=== PATIENT | female | born 1970 | race Caucasian/White ===

== ENCOUNTER 2021-01-29 15:04 | Outpatient (RCR) | payer BC, SELFPAY ==
[2021-01-29] MEDS: COVID-19 VACC, MRNA(PFIZER)/PF 30 MCG/0.3 ML SYRINGE IM (11:04)
[2021-02-19] MEDS: COVID-19 VACC, MRNA(PFIZER)/PF 30 MCG/0.3 ML SYRINGE IM (10:59)
== END 2021-01-29 23:59 ==
LOC: IMMUN 15:04
PROVIDERS: PCP Family Medicine; Visit Provider Family Medicine
DX: Z23 Encounter for immunization (principal)
CPT/HCPCS: 0001A; 0002A; 91300

== ENCOUNTER 2025-01-29 01:42 | Observation (INO) | payer BC, SELFPAY ==
[2025-01-29] VITALS (15 sets, daily range): BP systolic 118–148; BP diastolic 53–109; PULSE 91–151; RESP 16–22; TEMP 36.7–38.1; O2SAT 94–98; BMI 22.1; BMI 21.4
--- NOTE | 2025-01-29 01:54 | ED.VIS.DYS ---
HPI History of Present Illness Chief Complaint: Asthma Narrative Narrative: 54-year-old female past medical history of asthma that is usually well-controlled presents with shortness of breath, fever, cough with green sputum production that began on Tuesday, approximately 3 days ago. She states that she is having increasing shortness of breath is usually very careful around this time of year because she does not want to have an infection. She does her daily breathing treatments. She states that she has been ill and short of breath for the last few days. She and her went to urgent care yesterday evening around 8 hours ago, and were swabbed for COVID and flu and were negative. She last took Tylenol or ibuprofen at around midnight, 2 hours ago. [facility] Medical History (Updated 01/29/25 @ 03:[address] Cece Gooden MD) Allergic rhinitis HTN (hypertension) Asthma Home Medications ?Medication ?Instructions ?Recorded ?Last Taken ?Type albuterol sulfate 90 mcg/actuation 1 puff inhalation Q4H PRN PRN 01/29/25 Unknown History aerosol inhaler wheezing fexofenadine-pseudoephedrine ER 1 tab PO Q24H PRN allergy symptoms 01/29/25 Unknown History 180 mg-240 mg tablet,ext.release 24 hr (24HR Allergy-Congestion Relief) fluticasone 100 mcg-salmeterol 50 1 ea inhalation BID 01/29/25 Unknown History mcg/dose blistr powdr for inhalation hydroxyzine HCl 25 mg tablet 25 mg PO TID PRN PRN anxiety 01/29/25 Unknown History lisinopril 20 1 tab PO DAILY 01/29/25 Unknown History mg-hydrochlorothiazide 12.5 mg tablet polymyxin B sulfate 10,000 1 drp RIGHT EYE Q4H 01/29/25 Unknown History unit-trimethoprim 1 mg/mL eye drops Allergy/AdvReac Type Severity Reaction Status Date / Time amoxicillin Allergy Rash Verified 01/29/25 01:43 Sulfa (Sulfonamide AdvReac Mild Rash Verified 01/29/25 01:43 Antibiotics) Surgical History (Updated 01/29/25 @ 03:[address] Cece Gooden MD) H/O section Social History Smoking Status: Never smoker ROS ROS ED ROS Narrative Constitutional: Positive fever, no chills. HEENT: No sore throat. No neck pain. Cardiovascular: No chest pain. No palpitations. No pedal edema. Respiratory: Positive productive cough, positive shortness of breath. Abdominal: No abdominal pain. No nausea. No vomiting. Genitourinary: No dysuria. No hematuria. Musculoskeletal: No myalgias. No arthralgias. EXAM Physical Exam Narrative Exam Narrative: Temperature elevated at 100.6 ?F. Nontoxic-appearing. Cardiovascular examination does reveal positive Tachycardia. Positive rhonchi bilateral lower lung chaney left greater than right. Decreased air movement bilateral bases. No wheezing or stridor. Abdomen soft nontender without guarding or rebound. Neurological examination nonfocal and nonlateralizing. Const Vital Signs: 01/29/25 01:42 01/29/25 01:42 01/29/25 02:08 Temperature 100.6 F H Temperature Source Oral Pulse Rate 151 H 140 H Respiratory Rate 18 16 Respiratory Effort Normal Non-Labored Respiratory Depth Normal Respiratory Pattern Normal Normal Blood Pressure 148/64 H Blood Pressure Mean 92 Pulse Ox 94 Oxygen Delivery Method Room Air Room Air 01/29/25 02:35 01/29/25 03:19 01/29/25 03:20 Temperature 100.6 F H 100.6 F H Temperature Source Oral Pulse Rate 125 H 131 H Respiratory Rate 22 H 19 H Respiratory Effort Respiratory Depth Respiratory Pattern Blood Pressure 120/77 120/77 Blood Pressure Mean 91 91 Pulse Ox 95 95 Oxygen Delivery Method Room Air Room Air MDM MDM MDM Narrative Medical decision making narrative: Differential diagnosis includes but not limited to viral syndrome versus asthma exacerbation versus pneumonia. She has already been swabbed for COVID and influenza and she is outside the window for any influenza A medications. She will be given a loading dose of prednisone 60 mg orally and a DuoNeb aerosolized treatment. Chest x-ray and 2 views will be obtained. I did not administer any more antipyretics because she has taken 1 in the last 2 hours. Given her tachycardia, EKG will be obtained. There may be some anxiety component to her tachycardia as well. EKG was obtained and interpreted by myself independently as sinus tachycardia at [address] changes. No STEMI. Initially, on my independent interpretation of the chest x-ray in 2 views, there is a left lower lobe pneumonia/infiltrate. I reviewed the radiology report which confirmed my independent interpretation. Given her high heart rate, and elevated temperature of 100.6 ?F, sepsis workup was pursued. Repeat examination shows her breathing improved after DuoNeb aerosolized treatment. She remains tachycardic at 130 bpm. I reviewed her initial CBC which returned and she has a white count of 21.6 with hemoglobin 12.9, hematocrit 38.0, platelet count 253. I do feel that she has a pneumonia, and she will be started on CAP antibiotics. She has not noted allergic reaction to amoxicillin and sulfa where she gets rashes and states that she is not sure that she ever has had a cephalosporin previously because she does not usually take antibiotics. I will start her on Levaquin 750 mg IV. Her cultures are currently pending as well as her remaining laboratory work but I will discuss patient with Dr. Gooden the hospitalist for admission. Was able to review her laboratory work and she is hypokalemic at 3.1 but lactic acid normal at 1.1. While she may have SIRS, her heart rate is coming down to 125 bpm after IV fluid bolus. I do not feel she is meeting sepsis criteria as there is no endorgan damage. Her coagulation studies are negative and she does not have an acute kidney injury. Disposition is assigned observation in stable condition. History & Record Review Discussion w/independent historian: Patient and Family Lab Data Attestation: I reviewed the patient's lab results. Labs: Laboratory Results - last 24 hr 01/29/25 02:41 WBC 21.6 H RBC 4.10 L Hgb 12.9 Hct 38.0 MCV 92.7 MCH 31.5 MCHC 33.9 RDW Std Deviation 43.8 RDW Coeff of Zac 12.8 Plt Count 253 MPV 8.9 Immature Gran % (Auto) 0.700 Neut % (Auto) 85.8 H Lymph % (Auto) 3.9 L [place] % (Auto) 9.2 Eos % (Auto) 0.2 Baso % (Auto) 0.2 Absolute Neuts (auto) 18.5 H Absolute Lymphs (auto) 0.84 Nucleated RBC % 0 Differential Comment SCANNED Diff Path Review May foll Platelet Estimate ADEQUATE RBC Morphology NORM C+C PT 14.2 INR 1.1 APTT 31.5 Sodium 140 Potassium 3.1 L Chloride 102 Carbon Dioxide 20.7 L Anion Gap 18 H BUN 12 Creatinine 0.90 Estim Creat Clear Calc 62.81 Est GFR (MDRD) Non-Af 75 BUN/Creatinine Ratio 13.4 Glucose 144 H Lactic Acid 1.1 Calcium 9.6 Total Bilirubin 0.72 AST 23 ALT 8 Alkaline Phosphatase 175 H Total Protein 7.9 Albumin 4.0 Globulin 3.9 Albumin/Globulin Ratio 1.0 Radiography Chest X-Ray - ED: 2 View, Read by ED Physician, Read by Radiologist and Left Infiltrate Diagnostic Testing: Clinical Impression(s) from Imaging Studies Chest X-Ray 01/29/25 02:30 IMPRESSION: Abnormal patchy opacity projecting over the mid to lower left lung, concerning for pneumonia. Recommend continued radiologic follow-up to document resolution. Reading [facility] Management Discussion w/another healthcare provider: Hospitalist (Dr. Gooden) Discharge Plan Dx/Rx/DC Orders Clinical Impression: Pneumonia, Leukocytosis, History of asthma, Hypokalemia, SIRS (systemic inflammatory response syndrome) Disposition Disposition: Acute Care Hospital [facility]
--- NOTE | 2025-01-29 01:56 | EKG12_ITS ---
Test Reason : DYSRHYTHMIA Blood Pressure : */* mmHG Vent. Rate : 141 BPM Atrial Rate : 141 BPM P-R Int : 136 ms QRS Dur : 90 ms QT Int : 268 ms P-R-T Axes : 65 81 17 degrees QTcB Int : 410 ms Critical Test Result: High HR Sinus tachycardia Biatrial enlargement ST & T wave abnormality, consider inferior ischemia Abnormal ECG Confirmed by ABENA MILLER, MINNIE ([id number]), advertising editor TAMARA NOYOLA ([id number]) on 01/29/2025 8:22:04 AM Referred By: Confirmed By: MINNIE KRAFT MD
[2025-01-29] MEDS: predniSONE 20 MG Tablet 60 MG PO (01:59)
[2025-01-29] MEDS: Ipratropium/Albuterol Sulfate 3 ML AMPUL.NEB INHALATION ×5 (02:08→19:37)
--- NOTE | 2025-01-29 02:30 | RAD_ITS ---
PROCEDURE: PA and lateral chest radiographs, two views 01/29/2025 REASON FOR EXAM: FEVER, SHORTNESS OF BREATH TECHNIQUE: PA and lateral chest radiographs were obtained. COMPARISON: None available FINDINGS: The cardiomediastinal silhouette is within normal limits. Monitoring leads overlie the chest. Mild degenerative changes in the spine. No pneumothorax or pulmonary vascular congestion. Vague opacity projecting over the right cardiophrenic angle may be due to prominent fat pad. There is abnormal patchy opacity projecting over the mid to lower left lung. No sizable pleural effusion. RAD/Chest PA and Lateral IMPRESSION: Abnormal patchy opacity projecting over the mid to lower left lung, concerning for pneumonia. Recommend continued radiologic follow-up to document resolution. Reading Location: [facility]
--- NOTE | 2025-01-29 02:30 | ED.RN ---
NO OLD EKG
[2025-01-29] MEDS: 0.9% Normal Saline (1000mL) 1,000 ML 999 ML IV ×2 (02:47→04:23)
[2025-01-29 02:56] LABS: Absolute Lymphocyte Count 0.84 X10^3/uL (0.83-4.51); Absolute Neutrophil Count 18.5 X10^3/uL (2.0-7.7); Basophil# 0.04 X10^3/uL; Basophil% 0.2 % (0-1); Eosinophil# 0.04 X10^3/uL; Eosinophils% 0.2 % (0-5); Hemoglobin 12.9 g/dL (12.0-15.0); Lymphocyte # 0.84 X10^3/ul (0.83-4.51); Lymphocyte % 3.9 % (19-41); Mean Corp Hgb Conc 33.9 g/dL (32-36); Mean Corpuscular Hgb 31.5 pg (27.0-32.0); Mean Corpuscular Volume 92.7 fL (81-99); Mean Platelet Vol. 8.9 fl (6.2-12.0); Monocyte# 1.98 X10^3/uL; Monocyte% 9.2 % (0-10); NRBC Flagged by Analyzer 0 % (0-5); Neutrophil # 18.51 X10^3/uL (2.7-7.7); Neutrophil % 85.8 % (47-70); POSITIVE DIFFERENTIAL YES; POSITIVE MORPHOLOGY YES; Platelet Count 253 K/mm3 (150-450); RBC Distribution Width CV 12.8 % (11.6-14.6); RBC Distribution Width SD 43.8 fl (35.1-43.9); White Blood Count 21.6 K/mm3 (4.4-11.0)
[2025-01-29 02:57] LABS: Differential Indicated SCAN CRITERIA MET
[2025-01-29 03:05] LABS: International Normalized Ratio 1.1; Prothrombin Time (Protime)PT. 14.2 SECONDS (11.7-14.9)
[2025-01-29 03:11] LABS: Partial Thromboplast Time 31.5 Seconds (24.1-36.2)
--- NOTE | 2025-01-29 03:14 | PCM.HP.STD ---
HPI - General General Date of Admission: 01/29/25 Date of Service: 01/29/25 Chief Complaint: Dyspnea, cough, wheezing. HPI Narrative The patient is a 54 y/o F w/ PMHx: Asthma who presents to the [facility] ED on 01/29/2025 with history of dyspnea, worse with exertion, productive cough with green sputum as well as fevers/chills ongoing since the Tuesday prior to current presentation with self administration of daily breathing treatments without marked improvement with urgent care evaluation the day prior with COVID swab/flu noted to be negative with administration of Tylenol at that time or ibuprofen at midnight but given not improving prompted eventual ED evaluation. Has been who is present does report that approximately 2 weeks prior he had upper respiratory type infection with cough, congestion, fatigue malaise but has since improved. Workup in the ED included T100.6, heart rate 140, BP 148/64, respiratory rate 16, 94% on room air, CBC with RBC 21.6, he 1 12.9, platelet 253 with left shift, pending coags, CMP pending upon request evaluation of patient, urinalysis and urine culture pending upon request evaluation of patient, lactic acid pending upon request evaluation of patient, chest x-ray with abnormal patchy opacity projecting over the mid to lower left lung concerning for pneumonia, blood culture x 2 pending per ED. In the ED patient ministered 1 L normal saline, DuoNeb therapy, prednisone 60 mg p.o. x 1 and Levaquin 750 mg IV x 1. [facility] Medical History Allergic rhinitis HTN (hypertension) Asthma Home Medications ?Medication ?Instructions ?Recorded ?Last Taken ?Type albuterol sulfate 90 mcg/actuation 1 puff inhalation Q4H PRN PRN 01/29/25 Unknown History aerosol inhaler wheezing fexofenadine-pseudoephedrine ER 1 tab PO Q24H PRN allergy symptoms 01/29/25 Unknown History 180 mg-240 mg tablet,ext.release 24 hr (24HR Allergy-Congestion Relief) fluticasone 100 mcg-salmeterol 50 1 ea inhalation BID 01/29/25 Unknown History mcg/dose blistr powdr for inhalation hydroxyzine HCl 25 mg tablet 25 mg PO TID PRN PRN anxiety 01/29/25 Unknown History lisinopril 20 1 tab PO DAILY 01/29/25 Unknown History mg-hydrochlorothiazide 12.5 mg tablet polymyxin B sulfate 10,000 1 drp RIGHT EYE Q4H 01/29/25 Unknown History unit-trimethoprim 1 mg/mL eye drops Allergy/AdvReac Type Severity Reaction Status Date / Time amoxicillin Allergy Rash Verified 01/29/25 01:43 Sulfa (Sulfonamide AdvReac Mild Rash Verified 01/29/25 01:43 Antibiotics) Family History (Updated 01/29/25 @ 03:[address] Cece Gooden MD) Mother CVA (cerebral vascular accident) Hypertension Thyroid disorder Father Thyroid disorder Sister Thyroid disorder Surgical History H/O section Social History (Updated 01/29/25 @ 03:[address] Cece Gooden MD) household members: spouse and family Smoking Status: Never smoker alcohol intake: never substance use type: does not use ROS ROS Narrative Admission Review of Systems: CONSTITUTIONAL: No weight loss, + fever, chills, weakness or fatigue. HEENT: Eyes: No visual loss, blurred vision, double vision or yellow sclerae. Ears, Nose, Throat: No hearing loss, sneezing, congestion, runny nose or sore throat. SKIN: No rash or itching, lesions, wounds. CARDIOVASCULAR: No chest pain, chest pressure or chest discomfort, palpitations, edema, orthopnea, syncopal events. RESPIRATORY: + Dyspnea, worse with exertion, productive cough, wheezing. No hemoptysis. GASTROINTESTINAL: No anorexia, nausea, vomiting or diarrhea, abdominal pain, melena, BRBPR. GENITOURINARY: No dysuria, frequency, urgency or retention. NEUROLOGICAL: No headache, dizziness, syncope, paralysis, ataxia, numbness or tingling in the extremities, focal weakness, change in bowel or bladder control, seizure. MUSCULOSKELETAL: + muscle, back pain, joint pain or stiffness. HEMATOLOGIC: No anemia, bleeding or bruising. LYMPHATICS: No enlarged nodes. No history of splenectomy. PSYCHIATRIC: + History of anxiety. ENDOCRINOLOGIC: No reports of sweating, cold or heat intolerance. No polyuria or polydipsia. ALLERGIES: + History of asthma with allergic rhinitis. Vital Signs Vital Signs Vital Signs: 01/29/25 01:42 01/29/25 01:42 01/29/25 02:08 Temperature 100.6 F H Temperature Source Oral Pulse Rate 151 H 140 H Respiratory Rate 18 16 Respiratory Effort Normal Non-Labored Respiratory Depth Normal Respiratory Pattern Normal Normal Blood Pressure 148/64 H Blood Pressure Mean 92 Pulse Ox 94 Oxygen Delivery Method Room Air Room Air 01/29/25 02:35 Temperature Temperature Source Pulse Rate Respiratory Rate Respiratory Effort Respiratory Depth Respiratory Pattern Blood Pressure Blood Pressure Mean Pulse Ox Oxygen Delivery Method Room Air Weight Weight: 132 lb 11.492 oz Body Mass Index (BMI) 22.1 Physical Exam Narrative Physical Examination: General: Awake, alert, oriented x 3 and cooperative, seated upright in the ED bed, fatigued, ill-appearing. Skin: Normal color, normal turgor, no icterus, no cyanosis. HEENT: AT/NC, EOMI, PERRLA, mildly dry MM, no carotid bruits or JVD noted. Lungs: Diminished, greater bases, left greater than right, mildly rhonchorous left base to mid base, soft end expiratory wheezing noted, mildly increased respiratory rate but no distress. Heart: Tachycardic with regular rhythm; no gallop, rub audible. Abdomen: Soft, NTTP, ND, distant normal BS, no appreciated HSM. Extremities: No cyanosis, clubbing, or edema. Neurological: Patient awake, alert, oriented as noted, cognitive function intact; pupils equally reactive to light and accommodation, cranial nerves gross normal, moving all 4 extremities, no focal deficits, strength moderately globally decreased secondary to acute presentation. Psychiatric: Affect appears flat, fatigued, ill-appearing, no acute evidence of depressive or anxiety feelings but does have underlying anxiety history. Results Lab / Micro Data 01/29/25 02:41 01/29/25 02:41 Labs: Laboratory Results - last 24 hr 01/29/25 02:41: WBC 21.6 H, RBC 4.10 L, Hgb 12.9, Hct 38.0, MCV 92.7, MCH 31.5, MCHC 33.9, RDW Std Deviation 43.8, RDW Coeff of Zac 12.8, Plt Count 253, MPV 8.9, Immature Gran % (Auto) 0.700, Neut % (Auto) 85.8 H, Lymph % (Auto) 3.9 L, [place] % (Auto) 9.2, Eos % (Auto) 0.2, Baso % (Auto) 0.2, Absolute Neuts (auto) 18.5 H, Absolute Lymphs (auto) 0.84, Nucleated RBC % 0, PT 14.2, INR 1.1, APTT 31.5 Imaging Radiology Impression Chest X-Ray 01/29/25 02:30 IMPRESSION: Abnormal patchy opacity projecting over the mid to lower left lung, concerning for pneumonia. Recommend continued radiologic follow-up to document resolution. Reading [facility] Assessment & Plan Assessment/Plan (1) Asthma exacerbation: (2) Pneumonia: PLAN: Plan The patient is a 54 y/o F w/ PMHx: HTN, Asthma with allergic rhinitis who presents to the [facility] ED on 01/29/2025 with history of dyspnea, worse with exertion, productive cough with green sputum as well as fevers ongoing since the Tuesday prior to current presentation with self administration of daily breathing treatments without marked improvement with urgent care evaluation the day prior with COVID swab/flu noted to be negative with administration of Tylenol at that time or ibuprofen at midnight but given not improving prompted eventual ED evaluation. #1. SIRS with Acute Asthma Exacerbation secondary to Acute LM-LL Pneumonia, community-acquired: Will admit to PCU given significantly associated tachycardia at this time, pending CMP and lactic acid upon requested evaluation of patient of note her patient is nonseptic appearing, will give additional 1 L normal saline and continue with judicious maintenance IV fluids, currently maintaining room air however if necessary and oxygen is required will wean as tolerated to room air if necessary, will maintain on ATC duonebs, PRN albuterol, maintain on IV Rocephin and Azithromycin, maintain on IV Solu-Medrol, HOB, IS parameters w/ pending sputum cultures, full respiratory viral panel and urine antigens. MRSA screen requested. Bld cx x 2 obtained in the ED. Will obtain AM oxygenation trial for discharge planning daily. #2. Hypertension: Continue home regimen including lisinopril, temporally hold hydrochlorothiazide component given planned hydration, PRN hydralazine. #3. Allergic rhinitis: Will hold patient home venlafaxine and pseudoephedrine as it is only used as needed. #4. Anxiety: We will continue patient home low-dose as needed hydroxyzine regimen. #5. DVT prophylaxis: Lovenox Charges/Coding Visit Charges Inpatient E&M: 95451 Init Hosp L2
[2025-01-29] MEDS: levoFLOXacin IV 750 MG/150 ML BAG 100 MG IV (03:16)
[2025-01-29 03:18] LABS: AST(SGOT) 23 U/L (<=31); Alanine Aminotransfer ALT/SGPT 8 U/L (<=34); Alkaline Phosphatase 175 U/L (35-104); Anion Gap 18 (5-15); BUN 12 mg/dL (4-19); BUN/Creat Ratio 13.4 RATIO (10-20); Calcium,Total 9.6 mg/dL (7.6-11.0); Carbon Dioxide 20.7 mmol/L (21.0-32.0); Chloride 102 mmol/L (98-108); EST Glomerular Filtration Rate 75 (>60); Estimated Creatinine Clearance 62.81 ml/min (50-250); Globulin 3.9 g/dL (2.2-4.2); Glucose 144 mg/dL (70-99); Lactic Acid 1.1 mmol/L (0.0-2.0); Potassium 3.1 mmol/L (3.3-5.1); Protein, Total 7.9 g/dL (5.9-8.4); Sodium Level 140 mmol/L (133-145); Total Bilirubin 0.72 mg/dL (0.00-1.30)
[2025-01-29 03:28] LABS: Differential Comment SCANNED; Pathologist Review May foll; Platelet Estimate ADEQUATE (ADEQ); Red Cell Morphology NORM C+C NORMAL (NORM C&C)
[2025-01-29 03:45] LABS: Color, Urine Yellow (Yellow); Glucose, Dipstick Normal (Normal); Ketone-Dipstick 15 mg/dl (Negative); Leukocyte Esterase-Dipstick 500 /ul (Negative); Nitrite-Dipstick Negative (Negative); Occult Blood-Urine 150 /ul (Negative); Protein-Dipstick 15 mg/dl (Negative); Specific Gravity, Urine 1.005 (1.002-1.030); Urine Bilirubin Dipstick Negative (Negative); Urine Clarity Sl. Cloudy (Clear); Urine Urobilinogen Normal (Normal)
[2025-01-29] MEDS: Potassium Chloride Oral Tablet 20 MEQ 40 MEQ PO (04:03)
[2025-01-29 04:06] LABS: Amorphous Sediment 1+; Bacteria 2+ /hpf (None Seen); Mucous, Urine 1+ /hpf (<or=2+); Red Blood Cells-Urine 0-5 SEEN /hpf (0-5); Renal Epithelial Cells 0-5 SEEN /hpf (0-5); Squamous Epithelial Cells - UA 5-10 SEEN /hpf (5-10); Transitional Epithelial - Ur 0-5 SEEN /hpf (0-5); White Blood Cells 10-25 SEEN /hpf (0-5)
[2025-01-29 04:22] LABS: Magnesium 1.9 mg/dL (1.5-2.2)
[2025-01-29] MEDS: Methylprednisolone Sod Succ 40 MG/ML VIAL IV ×2 (04:24→14:37)
[2025-01-29] MEDS: 0.9% Normal Saline (1000mL) 1,000 ML 100 ML IV (05:55)
[2025-01-29] MEDS: Acetaminophen 325 MG Tablet 650 MG PO ×2 (06:01→16:18)
[2025-01-29 07:35] LABS: Absolute Lymphocyte Count 0.36 X10^3/uL (0.83-4.51); Absolute Neutrophil Count 17.5 X10^3/uL (2.0-7.7); Basophil# 0.07 X10^3/uL; Basophil% 0.4 % (0-1); Hemoglobin 11.8 g/dL (12.0-15.0); Lymphocyte # 0.36 X10^3/ul (0.83-4.51); Lymphocyte % 1.9 % (19-41); Mean Corp Hgb Conc 33.7 g/dL (32-36); Mean Corpuscular Hgb 31.2 pg (27.0-32.0); Mean Corpuscular Volume 92.6 fL (81-99); Mean Platelet Vol. 8.9 fl (6.2-12.0); Monocyte# 0.44 X10^3/uL; Monocyte% 2.4 % (0-10); NRBC Flagged by Analyzer 0 % (0-5); Neutrophil # 17.52 X10^3/uL (2.7-7.7); Neutrophil % 94.5 % (47-70); POSITIVE DIFFERENTIAL YES; Platelet Count 222 K/mm3 (150-450); RBC Distribution Width CV 12.9 % (11.6-14.6); RBC Distribution Width SD 44.2 fl (35.1-43.9); Red Blood Count 3.78 M/mm3 (4.2-5.4); White Blood Count 18.5 K/mm3 (4.4-11.0)
--- NOTE | 2025-01-29 08:13 | PCM.PN.HOSP ---
Reason for Visit Reason for Visit: Diagnoses Pneumonia, unspecified organism (01/29/25) Unspecified asthma with (acute) exacerbation (01/29/25) Objective Data Objective Data Vital Signs: Vital Signs Temp Pulse Resp BP Pulse Ox O2 Del Method 98.9 F 127 H 16 145/109 H 95 Room Air 01/29/25 04:22 01/29/25 04:22 01/29/25 04:22 01/29/25 04:22 01/29/25 04:22 01/29/25 04:33 Oxygen Delivery Method Room Air Weight: 128 lb 11.999 oz Body Mass Index (BMI) 21.4 Intake & Output: Intake and Output for Last 24 Hours 01/27/25 01/28/25 01/29/25 23:59 23:59 23:59 Intake Total 2149 / 2149 Balance 2149 / 2149 Lab / Micro Data 01/29/25 07:09 01/29/25 07:09 Labs: Laboratory Results - last 24 hr 01/29/25 02:41: WBC 21.6 H, RBC 4.10 L, Hgb 12.9, Hct 38.0, MCV 92.7, MCH 31.5, MCHC 33.9, RDW Std Deviation 43.8, RDW Coeff of Zac 12.8, Plt Count 253, MPV 8.9, Immature Gran % (Auto) 0.700, Neut % (Auto) 85.8 H, Lymph % (Auto) 3.9 L, [place] % (Auto) 9.2, Eos % (Auto) 0.2, Baso % (Auto) 0.2, Absolute Neuts (auto) 18.5 H, Absolute Lymphs (auto) 0.84, Nucleated RBC % 0, Differential Comment SCANNED, Diff Path Review March, Platelet Estimate ADEQUATE, RBC Morphology NORM C+C, PT 14.2, INR 1.1, APTT 31.5, Sodium 140, Potassium 3.1 L, Chloride 102, Carbon Dioxide 20.7 L, Anion Gap 18 H, BUN 12, Creatinine 0.90, Estim Creat Clear Calc 62.81, Est GFR (MDRD) Non-Af 75, BUN/Creatinine Ratio 13.4, Glucose 144 H, Lactic Acid 1.1, Calcium 9.6, Magnesium 1.9, Total Bilirubin 0.72, AST 23, ALT 8, Alkaline Phosphatase 175 H, Total Protein 7.9, Albumin 4.0, Globulin 3.9, Albumin/Globulin Ratio 1.0 01/29/25 03:32: Urine Color Yellow, Urine Clarity Sl. Cloudy, Urine pH 6.0, Ur Specific [place] 1.005, Urine Protein 15 H, Urine Glucose (UA) Normal, Urine Ketones 15 H, Urine Occult Blood 150 H, Urine Nitrite Negative, Urine Bilirubin Negative, Urine Urobilinogen Normal, Ur Leukocyte Esterase 500 H, Urine RBC 0-5 SEEN, Urine WBC 10-25 SEEN, Ur Squamous Epith Cells 5-10 SEEN, Ur Transition Epith Cell 0-5 SEEN, Ur Renal Epithelial Cell 0-5 SEEN, Amorphous Sediment 1+, Urine Bacteria 2+, Urine Mucus 1+ 01/29/25 07:09: WBC 18.5 H, RBC 3.78 L, Hgb 11.8 L, Hct 35.0 L, MCV 92.6, MCH 31.2, MCHC 33.7, RDW Std Deviation 44.2 H, RDW Coeff of Zac 12.9, Plt Count 222, MPV 8.9, Immature Gran % (Auto) 0.800, Neut % (Auto) 94.5 H, Lymph % (Auto) 1.9 L, [place] % (Auto) 2.4, Eos % (Auto) 0.0, Baso % (Auto) 0.4, Absolute Neuts (auto) 17.5 H, Absolute Lymphs (auto) 0.36 L, Nucleated RBC % 0 Micro: Microbiology 01/29/25 04:45 Nasal Secretion MRSA (PCR) - Final 01/29/25 03:32 Urine, Random Legionella Antigen - Final 01/29/25 03:32 Urine, Random Streptococcus pneumoniae Antigen (M - Final Radiography Diagnostic Testing: Radiology Impression Chest X-Ray 01/29/25 02:30 IMPRESSION: Abnormal patchy opacity projecting over the mid to lower left lung, concerning for pneumonia. Recommend continued radiologic follow-up to document resolution. Reading [facility] Assessment & Plan Assessment/Plan (1) Asthma exacerbation: (2) Pneumonia: PLAN: Plan The patient is a 54 y/o F came to ED with dyspnea worse with exertion, productive cough with greenish sputum, congestion, fever since past Tuesday with no relief from inhalers leading to tachycardia, anxiety. She also went to urgent care with negative COVID and flu swab #1. SIRS with Acute Asthma Exacerbation secondary to Acute LM-LL Pneumonia, community-acquired: Patient admitted to PCU. Sepsis was ruled out. Patient was resuscitated with IV fluid, IV antibiotics and oxygenation. Continue IV Rocephin and azithromycin, bronchodilator, IV Solu-Medrol. Gram stain shows 2+ WBC 1+ GPC. Urinary antigens and respiratory panel are negative. MRSA PCR negative #2. Hypertension: Continue home regimen including lisinopril, temporally hold hydrochlorothiazide component given planned hydration, PRN hydralazine. #3. Allergic rhinitis: Will hold patient home venlafaxine and pseudoephedrine as it is only used as needed. #4. Anxiety: We will continue patient home low-dose as needed hydroxyzine regimen. #5. DVT prophylaxis: Lovenox Microbiology Past 72 Hours 01/29/25 05:41 Sputum, Expectorated/Coughed Gram Stain - Final 01/29/25 04:24 Mucosa - Nasopharyngeal Respiratory Panel (PCR) - Final 01/29/25 04:45 Nasal Secretion MRSA (PCR) - Final 01/29/25 03:32 Urine, Random Legionella Antigen - Final 01/29/25 03:32 Urine, Random Streptococcus pneumoniae Antigen (M - Final Laboratory Results 01/29/25 02:41: WBC 21.6 H, RBC 4.10 L, Hgb 12.9, Hct 38.0, MCV 92.7, MCH 31.5, MCHC 33.9, RDW Std Deviation 43.8, RDW Coeff of Zac 12.8, Plt Count 253, MPV 8.9, Immature Gran % (Auto) 0.700, Neut % (Auto) 85.8 H, Lymph % (Auto) 3.9 L, [place] % (Auto) 9.2, Eos % (Auto) 0.2, Baso % (Auto) 0.2, Absolute Neuts (auto) 18.5 H, Absolute Lymphs (auto) 0.84, Nucleated RBC % 0, Differential Comment SCANNED, Diff Path Review March, Platelet Estimate ADEQUATE, RBC Morphology NORM C+C, PT 14.2, INR 1.1, APTT 31.5, Sodium 140, Potassium 3.1 L, Chloride 102, Carbon Dioxide 20.7 L, Anion Gap 18 H, BUN 12, Creatinine 0.90, Estim Creat Clear Calc 62.81, Est GFR (MDRD) Non-Af 75, BUN/Creatinine Ratio 13.4, Glucose 144 H, Lactic Acid 1.1, Calcium 9.6, Magnesium 1.9, Total Bilirubin 0.72, AST 23, ALT 8, Alkaline Phosphatase 175 H, Total Protein 7.9, Albumin 4.0, Globulin 3.9, Albumin/Globulin Ratio 1.0 01/29/25 03:32: Urine Color Yellow, Urine Clarity Sl. Cloudy, Urine pH 6.0, Ur Specific [place] 1.005, Urine Protein 15 H, Urine Glucose (UA) Normal, Urine Ketones 15 H, Urine Occult Blood 150 H, Urine Nitrite Negative, Urine Bilirubin Negative, Urine Urobilinogen Normal, Ur Leukocyte Esterase 500 H, Urine RBC 0-5 SEEN, Urine WBC 10-25 SEEN, Ur Squamous Epith Cells 5-10 SEEN, Ur Transition Epith Cell 0-5 SEEN, Ur Renal Epithelial Cell 0-5 SEEN, Amorphous Sediment 1+, Urine Bacteria 2+, Urine Mucus 1+ 01/29/25 07:09: WBC 18.5 H, RBC 3.78 L, Hgb 11.8 L, Hct 35.0 L, MCV 92.6, MCH 31.2, MCHC 33.7, RDW Std Deviation 44.2 H, RDW Coeff of Zac 12.9, Plt Count 222, MPV 8.9, Immature Gran % (Auto) 0.800, Neut % (Auto) 94.5 H, Lymph % (Auto) 1.9 L, [place] % (Auto) 2.4, Eos % (Auto) 0.0, Baso % (Auto) 0.4, Absolute Neuts (auto) 17.5 H, Absolute Lymphs (auto) 0.36 L, Nucleated RBC % 0, Sodium 141, Potassium 3.6, Chloride 108, Carbon Dioxide 20.0 L, Anion Gap 14, BUN 10, Creatinine 0.82, Estim Creat Clear Calc 68.93, Est GFR (MDRD) Non-Af 84, BUN/Creatinine Ratio 11.8, Glucose 208 H, Calcium 8.6, Total Bilirubin 0.49, AST 16, ALT 11, Alkaline Phosphatase 97, Total Protein 6.9, Albumin 3.4 L, Globulin 3.5, Albumin/Globulin Ratio 1.0 Charges/Coding Visit Charges Inpatient E&M: 49788 Subs Hosp L2
[2025-01-29 08:23] LABS: AST(SGOT) 16 U/L (<=31); Alanine Aminotransfer ALT/SGPT 11 U/L (<=34); Albumin, Serum 3.4 g/dL (3.5-5.0); Alkaline Phosphatase 97 U/L (35-104); Anion Gap 14 (5-15); BUN 10 mg/dL (4-19); BUN/Creat Ratio 11.8 RATIO (10-20); Calcium,Total 8.6 mg/dL (7.6-11.0); Chloride 108 mmol/L (98-108); Creatinine, Serum 0.82 mg/dL (0.70-1.20); EST Glomerular Filtration Rate 84 (>60); Estimated Creatinine Clearance 68.93 ml/min (50-250); Globulin 3.5 g/dL (2.2-4.2); Glucose 208 mg/dL (70-99); Potassium 3.6 mmol/L (3.3-5.1); Protein, Total 6.9 g/dL (5.9-8.4); Sodium Level 141 mmol/L (133-145); Total Bilirubin 0.49 mg/dL (0.00-1.30)
[2025-01-29] MEDS: Lisinopril 20 MG Tablet PO (09:39)
[2025-01-29] MEDS: Enoxaparin 40 MG/0.4 ML Syringe SC (09:39)
[2025-01-29] MEDS: Ceftriaxone 2 GM in 0.9% Normal Saline (50mL MB+) 50 ML IV (09:40)
[2025-01-29] MEDS: Azithromycin 500 MG in 0.9% Normal Saline (250mL Bag) 250 ML 255 MG IV (10:44)
[2025-01-29] MEDS: guaiFENesin/D-Methorphan TAB.SR.12H 1 TABLET PO (16:20)
[2025-01-30 02:14] VITALS: BMI 21.7
[2025-01-30 03:44] VITALS: BP 116/72; PULSE 80; RESP 16; TEMP 36.8; O2SAT 93
[2025-01-30 08:05] VITALS: PULSE 96; RESP 20; O2SAT 96
[2025-01-30] MEDS: Ipratropium/Albuterol Sulfate 3 ML AMPUL.NEB INHALATION ×2 (08:05→11:29)
[2025-01-30 08:13] VITALS: BP 137/83; PULSE 102; RESP 16; TEMP 36.7; O2SAT 99
[2025-01-30] MEDS: Lisinopril 20 MG Tablet PO (08:18)
[2025-01-30] MEDS: predniSONE 20 MG Tablet 40 MG PO (08:18)
[2025-01-30] MEDS: Enoxaparin 40 MG/0.4 ML Syringe SC (08:18)
--- NOTE | 2025-01-30 08:23 | PCM.DC ---
Discharge Instructions Diet Discharge Diet: No restrictions DC O2, CPAP, BIPAP needs Home O2 Discharge instructions: No Dressing / Incision Discharge Activity: Return to Normal Activity Weight Bearing Status: Weight bearing as tolerated Dressing / Incision Call your doctor if you observe: Fever of 101 or Higher, Coldness, Increased Pain, Numbness or Tingling, Change in Color, Inability to urinate, Inability to have a bowel movement, Shortness of breath, Dizziness, Fainting spells, Swelling in the ankles, Chest pain, Prolonged hiccupping, Increased palpitations (irregular heartbeat) and Calf discomfort Follow Up Care When: IN 2 WEEKS Test Results: Test results from this visit will be discussed in further detail at your follow-up appointment, if applicable. Discharge Plan Admission Admit Date/Time: 01/29/25 03:15 Primary Reason for Your Visit: Asthma exacerbation, left lower lobe pneumonia. Attending Provider: Donnie Whipple Primary Care Provider: Allyson Montague NP Consulting Providers: Cece Gooden Discharge Orders/Prescriptions Prescriptions: New dextromethorphan-guaifenesin 60-1,200 mg tablet extended release 12 hr 1 tab PO BID 7 Days Qty: 14 0RF ipratropium-albuterol 0.5 mg-3 mg(2.5 mg base)/3 mL Solution For Nebulization 3 ml inhalation Q4HWA.RT 30 Days Qty: 90 0RF prednisone 20 mg Tablet 40 mg PO BREAKFAST 4 Days Qty: 8 0RF Rx Instructions: For 4 more days levofloxacin 500 mg tablet 500 mg PO DAILY 5 Days Qty: 5 0RF Continued polymyxin B sulf-trimethoprim 10,000 unit- 1 mg/mL drops 1 drp RIGHT EYE Q4H fluticasone propion-salmeterol 100-50 mcg/dose blister with device 1 ea INHALATION BID albuterol sulfate 90 mcg/actuation HFA aerosol inhaler 1 puff INHALATION Q4H PRN PRN (Reason: wheezing) fexofenadine-pseudoephedrine [24HR Allergy-Congestion Relief] 180-240 mg tablet extended release 24 hr 1 tab PO Q24H PRN (Reason: allergy symptoms) Changed lisinopril-hydrochlorothiazide 20-12.5 mg tablet 0.5 tab PO DAILY 30 Days Qty: 0 0RF Rx Instructions: Hold for SBP less than 130 mmHg Held hydroxyzine HCl 25 mg tablet 25 mg PO TID PRN PRN (Reason: anxiety) Hold Instructions: Hold it while patient is taking levofloxacin Referrals / Follow Up: Stanislav Vargas MD [Non-Staff] - Allyson Montague NP, [employer]PERVISOR-C [Primary Care Provider] - Disposition Discharge Orders: Discharge Patient (Routine); Ordered 01/30/25 Ordered By: Dr. Donnie Whipple
[2025-01-30] MEDS: Ceftriaxone 2 GM in 0.9% Normal Saline (50mL MB+) 50 ML IV (08:24)
[2025-01-30] MEDS: guaiFENesin/D-Methorphan TAB.SR.12H 1 TABLET PO (09:00)
[2025-01-30] MEDS: Azithromycin 500 MG in 0.9% Normal Saline (250mL Bag) 250 ML 255 MG IV (09:00)
[2025-01-30 11:30] VITALS: PULSE 97; RESP 18
[2025-01-30 11:46] VITALS: O2SAT 93; O2SAT 97
--- NOTE | 2025-01-30 12:27 | CASEMGMT ---
Patient has order for discharge. RN CM in to discuss needs at discharge, at bedside. Patient denies needs or help at discharge. Patient had no further questions or concerns.
--- NOTE | 2025-01-30 13:15 | DS.PCM_ITS ---
Providers Date of Admission: 01/29/25 Date of Discharge: 01/30/25 Primary Care Physician: Allyson Montague, PRODUCT SAFETY COORDINATOR-C Reason For Visit: PNEUMONIA ASTHMA EXACERBATION Diagnosis Discharge Diagnosis (1) Asthma exacerbation: Status: Acute Code(s): J45.901 - Unspecified asthma with (acute) exacerbation (2) Pneumonia: Status: Acute Code(s): J18.9 - Pneumonia, unspecified organism Plan The patient is a 54 y/o F came to ED with dyspnea worse with exertion, productive cough with greenish sputum, congestion, fever since past Tuesday with no relief from inhalers leading to tachycardia, anxiety. She also went to urgent care with negative COVID and flu swab #1. SIRS with Acute Asthma Exacerbation secondary to Acute LM-LL Pneumonia, community-acquired: Patient admitted to PCU. Sepsis was ruled out. Patient was resuscitated with IV fluid, IV antibiotics and oxygenation. Continue IV Rocephin and azithromycin, bronchodilator, IV Solu-Medrol. Gram stain shows 2+ WBC 1+ GPC. Urinary antigens and respiratory panel are negative. MRSA PCR negative 01/30 patient feels much better. Not on oxygen. Home oxygen qualification shows patient does not need oxygen on ambulation. Patient discharged on Levaquin for 5 more days to complete a 7 days course, burst therapy of prednisone and DuoNeb prescription. She has nebulized liquid but not medicine. #2. Hypertension: Continue home regimen including lisinopril, temporally hold hydrochlorothiazide component given planned hydration, PRN hydralazine. 01/30 patient BP was in 120s therefore advised half tablet lisinopril/HCTZ 20/12.5 mg daily. #3. Allergic rhinitis: Will hold patient home venlafaxine and pseudoephedrine as it is only used as needed. 01/30 advised to hold hydroxyzine while patient taking Levaquin To avoid QT prolongation. #4. Anxiety: We will continue patient home low-dose as needed hydroxyzine regimen. #5. DVT prophylaxis: Lovenox Discharge medication reconciliation done. Discharge follow-up instructions completed. Discharge process discussed with the patient and all questions were answered to patient's satisfaction. Follow with PCP in 1 to 2 weeks Total time spent, exact 35 minutes on discharge meds reconciliation, examination, coordination of care with nurses and ancillary staff, review of imaging and blood test and discussion with the patient on follow-up instructions. Microbiology Past 72 Hours 01/29/25 05:41 Sputum, Expectorated/Coughed Gram Stain - Final 01/29/25 04:24 Mucosa - Nasopharyngeal Respiratory Panel (PCR) - Final 01/29/25 04:45 Nasal Secretion MRSA (PCR) - Final 01/29/25 03:32 Urine, Random Legionella Antigen - Final 01/29/25 03:32 Urine, Random Streptococcus pneumoniae Antigen (M - Final Laboratory Results 01/29/25 02:41: WBC 21.6 H, RBC 4.10 L, Hgb 12.9, Hct 38.0, MCV 92.7, MCH 31.5, MCHC 33.9, RDW Std Deviation 43.8, RDW Coeff of Zac 12.8, Plt Count 253, MPV 8.9, Immature Gran % (Auto) 0.700, Neut % (Auto) 85.8 H, Lymph % (Auto) 3.9 L, [place] % (Auto) 9.2, Eos % (Auto) 0.2, Baso % (Auto) 0.2, Absolute Neuts (auto) 18.5 H, Absolute Lymphs (auto) 0.84, Nucleated RBC % 0, Differential Comment SCANNED, Diff Path Review May foll, Platelet Estimate ADEQUATE, RBC Morphology NORM C+C, PT 14.2, INR 1.1, APTT 31.5, Sodium 140, Potassium 3.1 L, Chloride 102, Carbon Dioxide 20.7 L, Anion Gap 18 H, BUN 12, Creatinine 0.90, Estim Creat Clear Calc 62.81, Est GFR (MDRD) Non-Af 75, BUN/Creatinine Ratio 13.4, Glucose 144 H, Lactic Acid 1.1, Calcium 9.6, Magnesium 1.9, Total Bilirubin 0.72, AST 23, ALT 8, Alkaline Phosphatase 175 H, Total Protein 7.9, Albumin 4.0, Globulin 3.9, Albumin/Globulin Ratio 1.0 01/29/25 03:32: Urine Color Yellow, Urine Clarity Sl. Cloudy, Urine pH 6.0, Ur Specific [place] 1.005, Urine Protein 15 H, Urine Glucose (UA) Normal, Urine Ketones 15 H, Urine Occult Blood 150 H, Urine Nitrite Negative, Urine Bilirubin Negative, Urine Urobilinogen Normal, Ur Leukocyte Esterase 500 H, Urine RBC 0-5 SEEN, Urine WBC 10-25 SEEN, Ur Squamous Epith Cells 5-10 SEEN, Ur Transition Epith Cell 0-5 SEEN, Ur Renal Epithelial Cell 0-5 SEEN, Amorphous Sediment 1+, Urine Bacteria 2+, Urine Mucus 1+ 01/29/25 07:09: WBC 18.5 H, RBC 3.78 L, Hgb 11.8 L, Hct 35.0 L, MCV 92.6, MCH 31.2, MCHC 33.7, RDW Std Deviation 44.2 H, RDW Coeff of Zac 12.9, Plt Count 222, MPV 8.9, Immature Gran % (Auto) 0.800, Neut % (Auto) 94.5 H, Lymph % (Auto) 1.9 L, [place] % (Auto) 2.4, Eos % (Auto) 0.0, Baso % (Auto) 0.4, Absolute Neuts (auto) 17.5 H, Absolute Lymphs (auto) 0.36 L, Nucleated RBC % 0, Sodium 141, Potassium 3.6, Chloride 108, Carbon Dioxide 20.0 L, Anion Gap 14, BUN 10, Creatinine 0.82, Estim Creat Clear Calc 68.93, Est GFR (MDRD) Non-Af 84, BUN/Creatinine Ratio 11.8, Glucose 208 H, Calcium 8.6, Total Bilirubin 0.49, AST 16, ALT 11, Alkaline Phosphatase 97, Total Protein 6.9, Albumin 3.4 L, Globulin 3.5, Albumin/Globulin Ratio 1.0 Medications at Discharge Home Medications albuterol sulfate 90 mcg/actuation aerosol inhaler 1 puff inhalation Q4H PRN PRN wheezing 01/29/25 fexofenadine-pseudoephedrine ER 180 mg-240 mg tablet,ext.release 24 hr (24HR Allergy-Congestion Relief) 1 tab PO Q24H PRN allergy symptoms 01/29/25 fluticasone 100 mcg-salmeterol 50 mcg/dose blistr powdr for inhalation 1 ea inhalation BID allergies 01/29/25 hydroxyzine HCl 25 mg tablet 25 mg PO TID PRN PRN anxiety 01/29/25 Held on 01/30/25. Instructions: Hold it while patient is taking levofloxacin polymyxin B sulfate 10,000 unit-trimethoprim 1 mg/mL eye drops 1 drp RIGHT EYE Q4H eye health 01/29/25 dextromethorphan-guaifenesin ER 60 mg-1,200 mg tab,extend release,12hr 1 tab PO BID 7 days #14 tabs 01/30/25 ipratropium 0.5 mg-albuterol 3 mg (2.5 mg base)/3 mL nebulization soln 3 ml inhalation Q4HWA.RT 30 days #90 mL 01/30/25 levofloxacin 500 mg tablet 500 mg PO DAILY 5 days #5 tabs 01/30/25 lisinopril 20 mg-hydrochlorothiazide 12.5 mg tablet 0.5 tab PO DAILY blood pressure 30 days #0 tabs 01/30/25 prednisone 20 mg tablet 40 mg (2 x 20 mg) PO BREAKFAST 4 days #8 tabs 01/30/25 Physical Exam Narrative Patient is sitting upright. No shortness of breath or respiratory distress. Wants to go home. Physical exam General: Alert, Oriented x3, Cooperative HEENT: Atraumatic, PERRLA, EOMI, Normocephalic Oral: No Gingival or Mucosal Lesions/ Ulcerations Neck: Supple, No JVD, Negative Carotid Bruits Chest wall/Lungs: Air entry diminished in bilateral lung bases. Lungs clear. No wheezing or crepitations Cardiovascular: Mild sinus tachycardia, Normal S1, Normal S2, No M/G/R Abdomen: Bowel Sounds Present, Soft, Non Tender, Non-Distended : No dysuria. No renal angle tenderness. No suprapubic tenderness. Extremities: No edema, Capillary Refill Less than 3 Seconds Skin: No rashes, No breakdown Musculoskeletal: No Tenderness to Palpation of Joints or Extremities Neurological: Cranial nerves II-XII grossly intact, DTR 2+/4. No acute focal neurological deficit. Psych/Mental Status: Normal Affect, Appropriate. Weight / BMI Weight Weight: 130 lb 4.691 oz Body Mass Index (BMI) 21.7 ABG / Lab / Microbiology Data 01/29/25 07:09 01/29/25 07:09 Microbiology: Microbiology 01/29/25 05:41 Sputum, Expectorated/Coughed Gram Stain - Final 01/29/25 04:24 Mucosa - Nasopharyngeal Respiratory Panel (PCR) - Final 01/29/25 04:45 Nasal Secretion MRSA (PCR) - Final 01/29/25 03:32 Urine, Random Legionella Antigen - Final 01/29/25 03:32 Urine, Random Streptococcus pneumoniae Antigen (M - Final D/C Instructions Discharge Diet: No restrictions Weight Bearing Status: Weight bearing as tolerated Call your doctor if you observe: Fever of 101 or Higher, Coldness, Increased Pain, Numbness or Tingling, Change in Color, Inability to urinate, Inability to have a bowel movement, Shortness of breath, Dizziness, Fainting spells, Swelling in the ankles, Chest pain, Prolonged hiccupping, Increased palpitations (irregular heartbeat) and Calf discomfort DC O2, CPAP, BIPAP Needs Home O2 Discharge instructions: No When: IN 2 WEEKS Meaningful Use Info Meaningful Use Meaningful Use Diagnoses (Choose all that apply): None applicable Ischemic Stroke Statin Dosing Therapy Reference: STATIN DOSE THERAPY REFERENCE: * Patients > 75 years receive moderate or high dose statin therapy. * Patients 75 years or YOUNGER should receive HIGH intensity statin dose unless contraindicated. You will be required to document reason for non-treatment if statin daily dose does not meet guidelines. HIGH DOSE STATIN THERAPY DAILY Atorvastatin > than or = to 40 mg Rosuvastatin > than or = to 20 mg Amlodipine + Atorvastatin > than or = to 2.5/40 mg Ezetimibe + Simvastatin 10/80 mg Simvastatin 80mg Discharge Plan Admission Admit Date/Time: 01/29/25 03:15 Primary Reason for Your Visit: Asthma exacerbation, left lower lobe pneumonia. Attending Provider: Donnie Whipple Primary Care Provider: Allyson Montague NP Consulting Providers: Cece Gooden Discharge Orders/Prescriptions Prescriptions: New dextromethorphan-guaifenesin 60-1,200 mg tablet extended release 12 hr 1 tab PO BID 7 Days Qty: 14 0RF ipratropium-albuterol 0.5 mg-3 mg(2.5 mg base)/3 mL Solution For Nebulization 3 ml inhalation Q4HWA.RT 30 Days Qty: 90 0RF prednisone 20 mg Tablet 40 mg PO BREAKFAST 4 Days Qty: 8 0RF Rx Instructions: For 4 more days levofloxacin 500 mg tablet 500 mg PO DAILY 5 Days Qty: 5 0RF Continued polymyxin B sulf-trimethoprim 10,000 unit- 1 mg/mL drops 1 drp RIGHT EYE Q4H fluticasone propion-salmeterol 100-50 mcg/dose blister with device 1 ea INHALATION BID albuterol sulfate 90 mcg/actuation HFA aerosol inhaler 1 puff INHALATION Q4H PRN PRN (Reason: wheezing) fexofenadine-pseudoephedrine [24HR Allergy-Congestion Relief] 180-240 mg tablet extended release 24 hr 1 tab PO Q24H PRN (Reason: allergy symptoms) Changed lisinopril-hydrochlorothiazide 20-12.5 mg tablet 0.5 tab PO DAILY 30 Days Qty: 0 0RF Rx Instructions: Hold for SBP less than 130 mmHg Held hydroxyzine HCl 25 mg tablet 25 mg PO TID PRN PRN (Reason: anxiety) Hold Instructions: Hold it while patient is taking levofloxacin Referrals / Follow Up: Stanislav Vargas MD [Non-Staff] - Allyson Montague NP, PRODUCT SAFETY COORDINATOR-C [Primary Care Provider] - Disposition Discharge Orders: Discharge Patient (Routine); Ordered 01/30/25 Ordered By: Dr. Donnie Whipple Charges/Coding Visit Charges Inpatient E&M: 27359 Disch Hosp >30min
[2025-01-30 13:43] VITALS: BP 123/63; PULSE 91; RESP 16; O2SAT 97
== END 2025-01-30 08:24 | disposition home or self-care (01) ==
LOC: ED 03:20 → PCU 03:39
PROVIDERS: Admitting Provider Family Medicine; Emergency Provider Emergency Medicine; PCP Nurse Practitioner Family; Visit Provider Internal Medicine
DX: J45.901 Unspecified asthma with (acute) exacerbation (principal); J18.9 Pneumonia, unspecified organism; E87.6 Hypokalemia; I10 Essential (primary) hypertension; F41.9 Anxiety disorder, unspecified; Z79.899 Other long term (current) drug therapy
CPT/HCPCS: 36415; 71046; 80053; 81001; 83605; 83735; 85025; 85610; 85730; 87040; 87070; 87077; 87086; 87088; 87186; 87205; 87449; 87633; 87641; 93005; 94640; 94668; 96361; 96365; 96366; 96367; 96372; 96375; 96376; 99221; 99285; A4216; G0378; J0696